=== PATIENT | male | born 1995 | race Two or more races ===

== ENCOUNTER 2018-06-05 00:32 | Emergency (ER) | payer OTHER ==
[~2018-06-05] VITALS: Ht 170.2 cm; Wt 72.6 kg
[~2018-06-05 00:32] MED LIST: GILTUSS LIQUID237 M1; INTESTINEX1 CAP PO; NORTUSS-EX LIQ118 ML PO; ZITHROMAX TRI-500 MG PO; ZITHROMAX500 MG
[2018-06-05] MEDS ORDERED: KETO10TA2 PO (02:47)
== END 2018-06-05 03:08 | disposition home or self-care (01) ==
LOC: ER 00:32
DX: S46.812A Strain of other muscles, fascia and tendons at shoulder and upper arm level, left arm, initial encounter (principal); X50.3XXA Overexertion from repetitive movements, initial encounter; Y93.89 Activity, other specified; Y92.89 Other specified places as the place of occurrence of the external cause; Y99.8 Other external cause status

== ENCOUNTER 2019-02-26 19:31 | Emergency (ER) | payer OTHER ==
[~2019-02-26] VITALS: Ht 172.7 cm; Wt 78.9 kg
[~2019-02-26 19:31] MED LIST changes: +KETO10TA2 PO
== END 2019-02-26 22:48 | disposition home or self-care (01) ==
LOC: ER 19:31
DX: M25.512 Pain in left shoulder (principal)

== ENCOUNTER 2019-12-31 16:36 | Emergency (ER) | payer OTHER ==
[~2019-12-31] VITALS: Ht 172.7 cm; Wt 86.2 kg
== END 2019-12-31 22:13 | disposition home or self-care (01) ==
LOC: ER 16:36
DX: K59.09 Other constipation (principal)